=== PATIENT | male | born 2000 ===

== ENCOUNTER 2024-05-02 09:17 | Emergency (ER) | payer OTHER, SELFPAY ==
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
[2024-05-02 09:28] VITALS: BP 132/80; PULSE 107; O2SAT 95
[2024-05-02 09:34] VITALS: BP 114/67; PULSE 98; RESP 16; TEMP 36.7; O2SAT 97; BMI 25.7
--- NOTE | 2024-05-02 10:46 | PC.NURSE ---
20G peripheral IV placed to pt.'s RAC. Tolerated well. Good blood return.
[2024-05-02] MEDS: iohexoL 350 MG/ML 100 ML INFUS..BTL IV (10:58)
[2024-05-02 11:07] LABS: Ethanol 142 mg/dL
--- NOTE | 2024-05-02 12:38 | MHC.EDTECH ---
patient refusing to do a urine sample,i gave him an option to walk to the bathroom with the urine cup or to give him a urinal, he states i don't need to pee . I informed the ED provider .
[2024-05-02 13:20] LABS: Amphetamine Screen Urine Not Detected (Not Detect); Barbiturates, Urine Not Detected (Not Detect); Benzodiazepines Screen Urine Not Detected (Not Detect); Buprenorphine Scr Not Detected (Not Detect); Cannabinoid Screen Urine POSITIVE (Not Detect); Cocaine Screen Urine Not Detected (Not Detect); Fentanyl, urine Not Detected (Not Detect); Methadone Screen, Urine Not Detected (Not Detect); Opiate Screen Urine Not Detected (Not Detect); Oxycodone Screen Urine Not Detected (Not Detect); Phencyclidine Screen Urine Not Detected (Not Detect)
[2024-05-02 13:36] VITALS: BP 105/46; PULSE 83; RESP 16; TEMP 36.7; O2SAT 96
== END 2024-05-02 13:37 | disposition home or self-care (01) ==
PROVIDERS: Registered Nurse Emergency; Emergency Provider Emergency Medicine Emergency Medical Services
DX: Z04.1 Encounter for examination and observation following transport accident (principal); F10.920 Alcohol use, unspecified with intoxication, uncomplicated; Y90.6 Blood alcohol level of 120-199 mg/100 ml; F12.90 Cannabis use, unspecified, uncomplicated; M25.552 Pain in left hip
CPT/HCPCS: 36415; 70450; 71260; 72125; 74177; 80307; 99283; 99284; Q9967